=== PATIENT | female | born 1965 | race Caucasian/White ===

== ENCOUNTER 2023-08-28 04:19 | Day surgery (SDC) | payer OTHER ==
[2023-08-24 17:29] VITALS: BMI 26.4
[2023-08-28] MEDS ORDERED: MIDAZOLAM HCL 2 MG/2 ML SINGLE DOSE VIAL ONE ×2 (13:13→13:36)
[2023-08-28] MEDS ORDERED: FENTANYL CITRATE/PF 50 MCG/ML VIAL ONE ×3 (13:13→13:51)
[2023-08-28 15:18] VITALS: BP 110/70; PULSE 66; RESP 18; TEMP 98.4
== END 2023-08-28 15:12 | disposition home or self-care (01) ==
LOC: JASU-SURG 04:19
PROVIDERS: ATTEND Urology
PROC: 0TF3XZZ Fragmentation in Right Kidney Pelvis, External Approach (ICD-10-PCS; principal; 2023-08-28 13:00)
DX: N20.0 Calculus of kidney (principal); N20.1 Calculus of ureter